=== PATIENT | male | born 2000 | race African-American/Black ===

== ENCOUNTER 2021-01-18 23:58 | Emergency (ER) | payer BC, OTHER ==
[~2021-01-18] VITALS: Ht 172.7 cm; Wt 74.8 kg
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
[2021-01-19 00:49] LABS: BASOPHILS # (AUTO) 0.2 K/uL (0.0-0.2); BASOPHILS % (AUTO) 2.1 % (0.0-2.0); HEMATOCRIT 39 % (39-51); HEMOGLOBIN 13.1 g/dL (13.5-17.5); LYMPHOCYTES # (AUTO) 2.6 K/uL (0.8-4.8); LYMPHOCYTES % (AUTO) 23.7 % (20.0-44.0); MEAN CORPUSCULAR HGB CONC 34 g/dl (31.0-36.0); MEAN CORPUSCULAR VOLUME 80 fL (80-96); MONOCYTES # (AUTO) 0.6 K/uL (0.1-1.30); NEUTROPHILS # (AUTO) 7.2 K/uL (1.8-8.9); NEUTROPHILS % (AUTO) 66.2 % (43.0-81.0); PLATELET COUNT (AUTO) 275 K/uL (150-450); RED BLOOD CELL COUNT(AUTO) 4.82 MIL/uL (4.5-6.0); WHITE BLOOD COUNT (AUTO) 10.8 K/uL (4.3-11.0)
[2021-01-19 00:57] LABS: CALCIUM, SERUM 8.7 mg/dL (8.5-10.1); CARBON DIOXIDE 29 mmol/L (21-32); CHLORIDE 103 mmol/L (98-107); GLUCOSE 106 mg/dL (74-106); SODIUM SERUM 141 mmol/L (136-145); UREA NITROGEN, BLOOD 15 mg/dL (7-18)
[2021-01-19 00:58] LABS: BILIRUBIN,URINE Negative (NEGATIVE); COLOR,URINE LIGHT YELLOW (YELLOW); LEUKOCYTE ESTERASE ,URINE Negative (NEGATIVE); NITRITE, URINE Negative (NEGATIVE); PROTEIN,URINE Negative (NEGATIVE); UGLUCOSE Negative (NEGATIVE); UROBILINOGEN,URINE 0.2 EU/dL (0.2)
[2021-01-19 01:02] LABS: ALANINE AMINOTRANSFERASE 57 U/L (12-78); ALBUMIN 3.4 g/dL (3.4-5.0); ALCOHOL, BLOOD < 3 mg/dL (0-0); ALKALINE PHOSPHATASE 113 U/L (46-116); ASPARTATE AMINOTRANSFERASE 29 U/L (15-37); BILIRUBIN,DIRECT 0.1 mg/dL (0.0-0.2); BILIRUBIN,TOTAL 0.3 mg/dL (0.2-1.0); TOTAL PROTEIN, SERUM 7.4 g/dL (6.4-8.2)
[2021-01-19 01:06] LABS: ACETAMINOPHEN 0 ug/ml (10-30)
--- NOTE | 2021-01-19 02:03 | NUR ---
[facility] CALLED, WILL CALL BACK WITH ASSESSMENT COUNSELOR INFO
--- NOTE | 2021-01-19 03:32 | NUR ---
[facility]ER ETA [id number] AM
--- NOTE | 2021-01-19 07:34 | NUR ---
Patient discharged to home in stable condition. Written and verbal after care instructions given. Patient verbalizes understanding of instruction.
[2021-01-19 07:35] VITALS: BP 135/77
== END 2021-01-19 07:35 | disposition home or self-care (01) ==
LOC: ER 01-19 00:02
DX: F10.10 Alcohol abuse, uncomplicated (principal); F19.10 Other psychoactive substance abuse, uncomplicated; F17.290 Nicotine dependence, other tobacco product, uncomplicated; Y90.9 Presence of alcohol in blood, level not specified
CPT/HCPCS: 36415; 80048-TC; 80076-TC; 85025-TC; G0480

== ENCOUNTER 2021-03-27 01:07 | Emergency (ER) | payer BC ==
[~2021-03-27] VITALS: Ht 185.4 cm; Wt 154.2 kg
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
[2021-03-27] MEDS ORDERED: ONDANSETRON HCL/PF 4 MG/2 ML VIAL ONE (01:50)
[2021-03-27] MEDS ORDERED: IV NS 0.9% 1,000 ML BAG IV ONE (02:00)
[2021-03-27] MEDS ORDERED: ONDANSETRON HCL/PF 4 MG/2 ML VIAL IVP ONE (02:00)
[2021-03-27 02:06] LABS: BASOPHILS # (AUTO) 0.1 K/uL (0.0-0.2); BASOPHILS % (AUTO) 0.8 % (0.0-2.0); EOSINOPHILS % (AUTO) 0.1 % (0.0-6.0); HEMATOCRIT 41 % (39-51); HEMOGLOBIN 14.1 g/dL (13.5-17.5); LYMPHOCYTES # (AUTO) 1.8 K/uL (0.8-4.8); LYMPHOCYTES % (AUTO) 11.2 % (20.0-44.0); MEAN CORPUSCULAR HGB CONC 34 g/dl (31.0-36.0); MEAN CORPUSCULAR VOLUME 78 fL (80-96); MONOCYTES # (AUTO) 0.5 K/uL (0.1-1.30); MONOCYTES % (AUTO) 3.3 % (2.0-12.0); NEUTROPHILS # (AUTO) 13.6 K/uL (1.8-8.9); NEUTROPHILS % (AUTO) 84.6 % (43.0-81.0); PLATELET COUNT (AUTO) 355 K/uL (150-450); RED BLOOD CELL COUNT(AUTO) 5.34 MIL/uL (4.5-6.0); WHITE BLOOD COUNT (AUTO) 16.1 K/uL (4.3-11.0)
[2021-03-27 02:32] LABS: BILIRUBIN,DIRECT 0.2 mg/dL (0.0-0.2); BILIRUBIN,TOTAL 0.5 mg/dL (0.2-1.0); CALCIUM, SERUM 9.3 mg/dL (8.5-10.1); POTASSIUM 3.8 mmol/L (3.5-5.1); TOTAL PROTEIN, SERUM 8.8 g/dL (6.4-8.2)
[2021-03-27 03:00] VITALS: BP 149/75
--- NOTE | 2021-03-27 03:21 | NUR ---
Patient discharged to home in stable condition. Written and verbal after care instructions given. Patient verbalizes understanding of instruction. IV line removed and 2x2 gauze applied to site.
[2021-03-30] MEDS ORDERED: CEPH500C2 PO (18:29)
[2021-03-30] MEDS ORDERED: SULF1TAB48 PO (18:29)
[2021-03-30] MEDS ORDERED: ECON30CR4 TP (18:29)
[2021-03-30] MEDS ORDERED: MUPI22OI2 TP (18:29)
[2021-03-30] MEDS ORDERED: TRIA80OI TP (18:29)
== END 2021-03-27 03:44 | disposition home or self-care (01) ==
LOC: ER 01:12
DX: K92.0 Hematemesis (principal); F19.10 Other psychoactive substance abuse, uncomplicated; I10 Essential (primary) hypertension; R01.1 Cardiac murmur, unspecified
CPT/HCPCS: 36415; 80048; 80076; 83690; 85025; 85730; 86850; 96361; 96374; 99283; J2405; J7030

== ENCOUNTER → 2021-03-30 | Emergency (ER) | payer BC ==
[~2021-03-30] VITALS: Ht 185.4 cm; Wt 154.2 kg
[~2021-03-30] MED LIST: BACITRACIN ZINC OINT PACKET 1 EA PACKET TP ONE; CEPH500C2 PO; ECON30CR4 TP; IBUPROFEN 600 MG TABLET ONE; IBUPROFEN 600 MG TABLET PO ONE; MUPI22OI2 TP; SULF1TAB48 PO; TRIA80OI TP
[2021-03-30 17:48] VITALS: BP 153/78
--- NOTE | 2021-03-30 18:43 | NUR ---
RAMON EDMONDSON "[facility]" [phone]
--- NOTE | 2021-03-30 19:03 | NUR ---
Patient discharged to home in stable condition. Rx,Written and verbal after care instructions given. Patient verbalizes understanding of instruction.
== END | disposition home or self-care (01) ==
LOC: ER 17:46
DX: L30.9 Dermatitis, unspecified (principal); B35.3 Tinea pedis; B35.1 Tinea unguium; L08.9 Local infection of the skin and subcutaneous tissue, unspecified; F15.10 Other stimulant abuse, uncomplicated; F19.10 Other psychoactive substance abuse, uncomplicated; L03.011 Cellulitis of right finger; L97.329 Non-pressure chronic ulcer of left ankle with unspecified severity; E66.01 Morbid (severe) obesity due to excess calories; Z68.41 Body mass index [BMI] 40.0-44.9, adult; I10 Essential (primary) hypertension
CPT/HCPCS: 82962-TC

== ENCOUNTER 2021-09-10 13:31 | Emergency (ER) | payer BC ==
[~2021-09-10] VITALS: Ht 182.9 cm; Wt 135.2 kg
[~2021-09-10 13:31] MED LIST changes: -BACITRACIN ZINC OINT PACKET 1 EA PACKET TP ONE; -IBUPROFEN 600 MG TABLET ONE; -IBUPROFEN 600 MG TABLET PO ONE
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
--- NOTE | 2021-09-10 14:15 | NUR ---
SEEN AND EXAMINED BY
[2021-09-10] MEDS ORDERED: SULFAMETH/TRIMETH 800/160 MG 1 UDTAB TABLET ONE (14:30)
[2021-09-10] MEDS ORDERED: SULFAMETH/TRIMETH 800/160 MG 1 UDTAB TABLET PO ONE (14:30)
[2021-09-10] MEDS ORDERED: CEPHALEXIN MONOHYDRATE 500 MG CAPSULE PO ONE ×2 (14:30)
--- NOTE | 2021-09-10 14:45 | NUR ---
Patient discharged to home in stable condition. Written and verbal after care instructions given. Patient verbalizes understanding of instruction.
[2021-09-10 14:53] VITALS: BP 135/70
== END 2021-09-10 14:45 | disposition home or self-care (01) ==
LOC: ER 13:35
DX: F19.10 Other psychoactive substance abuse, uncomplicated (principal); L30.9 Dermatitis, unspecified; L03.114 Cellulitis of left upper limb; L03.113 Cellulitis of right upper limb; E66.01 Morbid (severe) obesity due to excess calories; Z68.41 Body mass index [BMI] 40.0-44.9, adult; I10 Essential (primary) hypertension; F17.200 Nicotine dependence, unspecified, uncomplicated; Z79.899 Other long term (current) drug therapy

== ENCOUNTER 2022-10-24 18:58 | Emergency (ER) | payer BC ==
[~2022-10-24] VITALS: Ht 170.2 cm; Wt 91.2 kg
[2022-10-24 19:04] VITALS: BP 102/61; TEMP 98; O2SAT 100
[2022-10-24 20:28] LABS: BASOPHILS # (AUTO) 0.1 K/uL (0.0-0.2); BASOPHILS % (AUTO) 0.6 % (0.0-2.0); EOSINOPHILS # (AUTO) 0.2 K/uL (0.0-0.7); EOSINOPHILS % (AUTO) 1.1 % (0.0-6.0); HEMATOCRIT 41 % (39-51); HEMOGLOBIN 13.3 g/dL (13.5-17.5); LYMPHOCYTES # (AUTO) 3.1 K/uL (0.8-4.8); LYMPHOCYTES % (AUTO) 22.1 % (20.0-44.0); MEAN CORPUSCULAR HEMOGLOBIN 27 PG (26.0-33.0); MEAN CORPUSCULAR HGB CONC 32 g/dl (31.0-36.0); MEAN CORPUSCULAR VOLUME 84 fL (80-96); MONOCYTES % (AUTO) 7.2 % (2.0-12.0); NEUTROPHILS # (AUTO) 9.7 K/uL (1.8-8.9); PLATELET COUNT (AUTO) 279 K/uL (150-450); RED BLOOD CELL COUNT(AUTO) 4.95 MIL/uL (4.5-6.0)
[2022-10-24 20:53] LABS: CARBON DIOXIDE 22 mmol/L (21-32); CHLORIDE 105 mmol/L (98-107); GLUCOSE 92 mg/dL (74-106); POTASSIUM 3.7 mmol/L (3.5-5.1); SODIUM SERUM 136 mmol/L (136-145); UREA NITROGEN, BLOOD 16 mg/dL (7-18)
[2022-10-24 21:01] LABS: ALANINE AMINOTRANSFERASE 49 U/L (12-78); ALBUMIN 3.5 g/dL (3.4-5.0); ALKALINE PHOSPHATASE 79 U/L (46-116); ASPARTATE AMINOTRANSFERASE 16 U/L (15-37); BILIRUBIN,DIRECT 0.1 mg/dL (0.0-0.2); BILIRUBIN,TOTAL 0.5 mg/dL (0.2-1.0); TOTAL PROTEIN, SERUM 7.1 g/dL (6.4-8.2)
[2022-10-24 21:04] LABS: SALICYLATE < 2.3 mg/dL (2.8-20.0)
[2022-10-24 21:05] LABS: ACETAMINOPHEN 0 ug/ml (10-30); ALCOHOL, BLOOD < 3 mg/dL (0-10)
[2022-10-24] MEDS ORDERED: ONDANSETRON HCL/PF 4 MG/2 ML VIAL ONE (22:03)
[2022-10-24] MEDS ORDERED: MORPHINE SULFATE INJ 4 MG/ML DISP.SYRIN ONE (22:04)
[2022-10-24] MEDS ORDERED: VANCOMYCIN 1 GM /D5W 250 ML PB IV ONE (22:04)
[2022-10-24 23:18] LABS: APPEARANCE,URINE TURBID (CLEAR); BILIRUBIN,URINE NEGATIVE (NEGATIVE); BLOOD, URINE NEGATIVE Ery/uL (NEGATIVE); COLOR,URINE DARK YELLOW (YELLOW); KETONES,URINE NEGATIVE (NEGATIVE); LEUKOCYTE ESTERASE ,URINE NEGATIVE (NEGATIVE); NITRITE, URINE NEGATIVE (NEGATIVE); PH,URINE 5.5 (5.0-8.0); PROTEIN,URINE NEGATIVE (NEGATIVE); UGLUCOSE NEGATIVE (NEGATIVE); UROBILINOGEN,URINE 0.2 EU/dL (0.2)
[2022-10-24 23:31] LABS: AMPHETAMINE, URINE NEGATIVE (NEGATIVE); COCCAINE, URINE NEGATIVE (NEGATIVE); OPIATE, URINE NEGATIVE (NEGATIVE); PHENCYCLIDINE SCREEN,URINE NEGATIVE (NEGATIVE)
[2022-10-24 23:33] LABS: BARBITURATE, URINE POSITIVE (NEGATIVE); BENZODIAZEPINE, URINE POSITIVE (NEGATIVE); CANNABINOID, URINE POSITIVE (NEGATIVE)
== END 2022-10-24 23:59 | disposition home or self-care (01) ==
LOC: ER 19:00
DX: T40.411A Poisoning by fentanyl or fentanyl analogs, accidental (unintentional), initial encounter (principal); R51.9 Headache, unspecified; F19.10 Other psychoactive substance abuse, uncomplicated; I10 Essential (primary) hypertension; F17.200 Nicotine dependence, unspecified, uncomplicated; Z79.899 Other long term (current) drug therapy; Y92.89 Other specified places as the place of occurrence of the external cause
CPT/HCPCS: 99285; 93005; 71045; 70450; 85025; 80048; 80076; 81003; 36415; 84484; 80143; 80320; 80179; 80307; A4223; G0480; J2270; J2405; J3370